=== PATIENT | female | born 1985 | race Caucasian/White ===

== ENCOUNTER 2018-10-21 09:04 | Day surgery (SDC) | payer OTHER ==
[2018-10-20 12:34] VITALS: BMI 54.8
[2018-10-21] MEDS ORDERED: ONDANSETRON 4 MG/2 ML VIAL IVPUSH PRN ×2 (11:06→11:25)
[2018-10-21] MEDS ORDERED: oxyCODONE HCL 5 MG TABLET PO PRN ×2 (11:06→11:25)
[2018-10-21] MEDS ORDERED: LACTATED RINGERS SOLUTION 1,000 ML IV SCH (11:15)
[2018-10-21] MEDS ORDERED: fentaNYL CITRATE 250 MCG/5 ML VIAL ONE (11:23)
[2018-10-21] MEDS ORDERED: PROPOFOL 20 ML ONE ×3 (11:23→11:52)
[2018-10-21] MEDS ORDERED: ROCURONIUM BROMIDE 50 MG/5 ML VIAL ONE ×2 (11:24→11:53)
[2018-10-21] MEDS ORDERED: MIDAZOLAM HCL 2 MG/2 ML SINGLE DOSE VIAL ONE (11:24)
--- NOTE | 2018-10-21 11:24 | HP ---
History & Physical Update - History History: No Change (Patient seen and examined, H&P consistent with 10/13/18 Consent signed, and witnessed, all questions answered) - Physical Physical: No Change - Assessment Assessment: No Change - Plan Plan: No Change
[2018-10-21] MEDS ORDERED: IBUPROFEN 800 MG/8 ML IJ IVPB PRN (11:25)
[2018-10-21] MEDS ORDERED: IBUPROFEN 600 MG TABLET (FP) PO PRN (11:25)
[2018-10-21] MEDS ORDERED: ELECTROLYTE-148 SOLN 1,000 ML IV SCH (11:30)
[2018-10-21 14:26] VITALS: TEMP 98.2
--- NOTE | 2018-10-21 14:41 | OP ---
Operative Note - Note: Operative Date: 10/21/18 Pre-Operative Diagnosis: 33yo P0 with PCOS menometrorhagia Operation: Hysteroscopy, Polypectomy, D&C Findings: Exceptionally difficult procedure due to body habitus Endometrial and cervical polyps Post-Operative Diagnosis: Same as Pre-op Surgeon: Randi Gonzales Anesthesiologist/CONTACT OFFICER: Angeles Mauro Anesthesia: MAC Specimens Removed: Polyps x 2 Estimated Blood Loss (mls): 5 Instrument used (Debridements only): Symphion Drains & Tubes with Location: Fluid defficit 0cc Drains, Volume Out (mls): 100 Fluid Volume Replaced (mls): 700 Operative Report Dictated: Yes
[2018-10-21 15:17] VITALS: BP 124/80; PULSE 66
--- NOTE | 2018-10-21 22:06 | OP ---
DATE OF OPERATION: 10/21/2018 PREOPERATIVE DIAGNOSES: A 33-year-old para 0 with polycystic ovary syndrome and menometrorrhagia. OPERATION: Hysteroscopy, polypectomy, dilation and curettage. FINDINGS: Exceptionally difficult procedure due to morbid body habitus. Endometrial and cervical polyps. POSTOPERATIVE DIAGNOSES: A 33-year-old para 0 with polycystic ovary syndrome and menometrorrhagia. SURGEON: Mary Bhagat MD ANESTHESIOLOGIST: Angeles Bejarano CRNA ANESTHESIA: MAC. DESCRIPTION OF THE OPERATIVE PROCEDURE: After assuring informed consent, the patient was brought to the operating room, where she was placed in the dorsal lithotomy position. Perineum was prepped and draped in sterile fashion. Symphion hysteroscope was assembled, white-balanced, and primed. The multiple retractors were used in order to visualize the cervix, which required exceptionally long and wide retractors, and nurses held assistance just to visualize the cervix. Once the cervix was finally visualized, it was articulated with a single-toothed tenaculum and dilated to accommodate a 6.3-mm hysteroscope. Hysteroscope was introduced without any difficulty into the endometrial cavity. Endometrial cavity was surveyed. Bilateral ostia visualized. Right lower uterine segment polyp was noted and cervical polyp was noted. Symphion resectoscope was introduced through the operative channel and both polyps were resected. Endometrial curettings were collected as well. Subsequently, uterus was free of any foreign tissue. Instruments were removed from cervix, uterus, and vagina. Estimated blood loss 5 mL, fluid deficit 0 mL, urine output 100. Patient received 700 mL of fluids. Instrument and sponge count was correct x2. Patient was brought to the recovery room in stable condition. MARY BHAGAT M.D. [id number]
--- NOTE | 2018-10-23 12:38 | PATH ---
Surgical Pathology Report Patient Name: JOEY [facility]. Rec. #: [id number] /Age/Gender: 1985 (Age: 33) / F Account: [id number] Location: [facility] SURGICAL Taken: 10/21/2018 Received: 10/22/2018 Reported: 10/23/2018 Physicians: Randi Gonzales M.D. Specimen(s) Received CERVICAL AND UTERINE POLYP Clinical History Polycystic ovarian disease, abnormal uterine/vaginal bleeding Final Diagnosis CERVICAL POLYP AND UTERINE POLYP, DILATION AND CURETTAGE: FRAGMENTS OF ENDOMETRIAL POLYP, ENDOCERVICAL POLYP, SUPERFICIAL MYOMETRIUM, AND BENIGN CERVICAL TISSUE. Electronically Signed Brooke Barclay M.D. Gross Description Received in formalin labeled "cervical polyp and uterine polyp," is a 2.4 x 2.2 x 0.3 cm aggregate of denson soft tissue fragments. The formalin is filtered and the specimen is entirely submitted in one cassette. /10/22/201810/22/2018
== END 2018-10-21 15:40 | disposition home or self-care (01) ==
LOC: JASU-SURG 09:04
PROVIDERS: ATTEND Obstetrics & Gynecology
PROC: 0UDB7ZX Extraction of Endometrium, Via Natural or Artificial Opening, Diagnostic (ICD-10-PCS; 2018-10-21)
PROC: 0UJD8ZZ Inspection of Uterus and Cervix, Via Natural or Artificial Opening Endoscopic (ICD-10-PCS; 2018-10-21)
PROC: 0UBC7ZX Excision of Cervix, Via Natural or Artificial Opening, Diagnostic (ICD-10-PCS; principal; 2018-10-21 10:30)
PROC: 0UB97ZX Excision of Uterus, Via Natural or Artificial Opening, Diagnostic (ICD-10-PCS; 2018-10-21 10:30)
DX: N92.1 Excessive and frequent menstruation with irregular cycle (principal); E28.2 Polycystic ovarian syndrome; E66.01 Morbid (severe) obesity due to excess calories; N84.1 Polyp of cervix uteri
CPT/HCPCS: 84703; 88305-TC; 94760

== ENCOUNTER 2021-08-25 09:15 | Emergency (ER) | payer OTHER ==
[2021-08-25 09:24] VITALS: TEMP 99.7; BMI 49.8
[2021-08-25 11:10] VITALS: BP 128/84; PULSE 88
== END 2021-08-25 11:10 | disposition home or self-care (01) ==
LOC: FER 09:15
DX: U07.1 COVID-19 (principal)
CPT/HCPCS: 71046-TC-FY; 93005; 99284-25; C9803; U0003; U0005

== ENCOUNTER 2021-08-27 20:26 | Emergency (ER) | payer OTHER ==
[2021-08-27 20:42] VITALS: BP 147/96; PULSE 88; TEMP 97.8; BMI 49.8
== END 2021-08-27 22:19 | disposition home or self-care (01) ==
LOC: FER 20:26
DX: R07.9 Chest pain, unspecified (principal)
CPT/HCPCS: 93005; 99283-25

== ENCOUNTER 2022-01-23 12:36 | Emergency (ER) | payer OTHER ==
[2022-01-23 12:56] VITALS: BP 136/100; PULSE 95; TEMP 98.7; BMI 50.1
[2022-01-23 16:06] LABS: HEMATOCRIT 40.2 % (32.4-45.2); HEMOGLOBIN 13.7 G/dL (10.7-15.3); MCH 26.8 pg (25.7-33.7); MCHC 34.1 g/dl (32.0-36.0); MEAN CELL VOLUME 78.6 fl (80-96); RBC 5.11 10^6/uL (3.60-5.2); RDW 15.1 % (11.6-15.6); WHITE BLOOD COUNT 7.4 10^3/uL (4.0-10.8)
[2022-01-23 16:07] LABS: PLATELET COUNT 271.8 10^3/uL (134-434)
[2022-01-23 16:29] LABS: PLATELET ESTIMATE ADEQUATE
== END 2022-01-23 16:28 | disposition home or self-care (01) ==
LOC: FER 12:36
DX: K62.5 Hemorrhage of anus and rectum (principal); R03.0 Elevated blood-pressure reading, without diagnosis of hypertension
CPT/HCPCS: 36415; 85025; 99283-25

== ENCOUNTER 2022-09-20 16:10 | Emergency (ER) | payer BC, OTHER ==
[2022-09-20 16:20] VITALS: BP 155/101; PULSE 101; RESP 20; TEMP 98; BMI 53.2
[2022-09-20] MEDS ORDERED: IBUPROFEN 600 MG TABLET (FP) PO ONE ×2 (16:37→16:40)
[2022-09-20] MEDS ORDERED: COLCHICINE 0.6 MG CAP PO ONE (17:03)
[2022-09-20] MEDS ORDERED: COLCHICINE 0.6 MG TAB ONE (17:10)
== END 2022-09-20 17:38 | disposition home or self-care (01) ==
LOC: FER 16:10
DX: M25.571 Pain in right ankle and joints of right foot (principal)
CPT/HCPCS: 73610-TC-RT-FY; 73630-TC-RT-FY; 99283-25

== ENCOUNTER 2023-08-18 08:50 | Emergency (ER) | payer BC ==
[2023-08-18 09:08] VITALS: RESP 18; BMI 54.0
[2023-08-18] MEDS ORDERED: ACETAMINOPHEN 500 MG TABLET (FP) PO ONE (09:22)
[2023-08-18] MEDS ORDERED: SODIUM CHLORIDE 0.9% 500 ML INFUS.BAG IV ONE (09:22)
[2023-08-18 09:54] LABS: HEMATOCRIT 43.9 % (32.4-45.2); HEMOGLOBIN 14.8 G/dL (10.7-15.3); MCH 26.8 pg (25.7-33.7); MCHC 33.6 g/dl (32.0-36.0); MEAN CELL VOLUME 79.6 fl (80-96); MEAN PLT VOLUME 8.2 fl (7.5-11.1); PLATELET COUNT 207.8 10^3/uL (134-434); RBC 5.51 10^6/uL (3.60-5.2); RDW 15.3 % (11.6-15.6); WHITE BLOOD COUNT 6.9 10^3/uL (4.0-10.8)
[2023-08-18] MEDS ORDERED: ACETAMINOPHEN 500 MG TABLET (FP) ONE (10:02)
[2023-08-18 10:07] LABS: ALBUMIN 4.2 g/dl (3.4-5.0); BILIRUBIN,TOTAL 0.5 mg/dl (0.2-1); CALCIUM 9.2 mg/dl (8.5-10.1); CREATININE 1.1 mg/dl (0.6-1.3); POTASSIUM 3.5 mmol/L (3.5-5.1); TOT PROT 7.8 g/dl (6.4-8.2)
[2023-08-18 10:08] LABS: INR 1.23 (0.83-1.09); PROTHROMBIN TIME (PATIENT) 14.2 SEC (9.7-13.0)
[2023-08-18 10:11] LABS: ACTIVATED PTT 30.3 SECONDS (25.2-36.5)
[2023-08-18 11:12] VITALS: BP 137/91; PULSE 103; TEMP 99.7
== END 2023-08-18 12:59 | disposition home or self-care (01) ==
LOC: FER 08:50
DX: R00.2 Palpitations (principal); R06.02 Shortness of breath; R50.9 Fever, unspecified; J10.1 Influenza due to other identified influenza virus with other respiratory manifestations; Z20.822 Contact with and (suspected) exposure to COVID-19
CPT/HCPCS: 0241U-QW; 36415; 71046-TC-FY; 71275-TC; 80053; 81025; 83880; 84484; 85027; 85379; 85610; 85730; 93005; 99285-25; Q9967